=== PATIENT | female | born 1950 | race Caucasian/White ===

== ENCOUNTER 2018-04-15 16:12 | Emergency (ER) | payer MEDICARE, OTHER ==
[~2018-04-15] VITALS: Ht 154.9 cm; Wt 80.3 kg
[~2018-04-15 16:12] MED LIST: ASPIRIN81 MG PO; GLIPIZIDE10 MG PO; METFORMIN HCL850 MG PO; METOPROLOL TART50 MG PO; SIMVASTATIN20 M1 PO
[2018-04-15 16:20] VITALS: Ht 154.9 cm; Wt 80.3 kg
[2018-04-15 18:10] LABS: UA SPECIFIC GRAVITY >=1.030 (1.005-1.035); microscopic required? YES; urine erythrocyte NEGATIVE (NEGATIVE)
[2018-04-15 18:12] LABS: BASOPHIL % 0.6 % (0-2); PLATELET COUNT 253 x10^3mcL (130-400); RED CELL DISTRIBUTION WIDTH 12.2 % (11.5-14.5)
[2018-04-15 18:24] LABS: CALCIUM 10.1 mg/dL (8.5-10.1); CARBON DIOXIDE 28.3 mmol/L (21-32); CHLORIDE SERUM 104 mmol/L (98-107); CREATININE SERUM 0.8 mg/dL (0.6-1.0); GFR1 > 60 mL/min; GLUCOSE SERUM 226 mg/dL (74-106); POTASSIUM SERUM 3.9 mmol/L (3.5-5.1); SODIUM SERUM 142 mmol/L (136-145)
[2018-04-15 18:28] LABS: ALBUMIN 3.7 g/dL (3.4-5.0); ALKALINE PHOSPHATASE 59 U/L (46-116); ALT/SGPT 30 U/L (14-59); AST/SGOT 23 U/L (15-37); BILIRUBIN TOTAL 0.3 mg/dL (0.20-1.00); TOTAL PROTEIN, SERUM 7.3 g/dL (6.4-8.2)
[2018-04-15 23:02] VITALS: BP 115/67
== END 2018-04-15 23:02 | disposition home or self-care (01) ==
LOC: ED 16:12
PROVIDERS: Emergency Medicine
DX: N39.0 Urinary tract infection, site not specified (principal); E11.65 Type 2 diabetes mellitus with hyperglycemia; I10 Essential (primary) hypertension; E78.00 Pure hypercholesterolemia, unspecified
CPT/HCPCS: 36415

== ENCOUNTER 2020-03-13 16:08 | Observation (INO) | payer OTHER, MEDICAID, SELFPAY ==
[~2020-03-13] VITALS: Ht 165.1 cm; Wt 75.7 kg
[~2020-03-13 16:08] MED LIST changes: +ASPIRIN FOR CHI81 M1 PO; -ASPIRIN81 MG PO; +GLIPIZIDE XL10 M1 PO; -GLIPIZIDE10 MG PO
--- NOTE | 2020-03-13 17:23 | NUR ---
PT SPO2 NOTED 92% ON ROOM AIR. TX DR SING. ACOSTA EPT OFF OXYGEN AT THIS TIMRE UNTIL BLOOD GAS COMPLETED
--- NOTE | 2020-03-13 17:23 | NUR ---
DR MONTILLA AT THE BEDSIDE FOR MSE TO PT
--- NOTE | 2020-03-13 17:30 | NUR ---
PT ARRIVED FROM HOME, C/O INTERMITTENT HEADACHES, GENERALIZED ABDOMINAL PAIN DIARRHEA TODAY X 3 EPISODES, BODYACHES, FEVER AND CHILLS, X 3 DAYS TOTAL, PT STATES SHE ALSO CAME BECAUSE BLOOD SURGAR WAS LOW, 70 AT HOME, DENIES ANY OTHER COMPLAINTS AT THIS TIME, PT PLACED IN BED 12, GOWNED, AAOX4, NO ACUTE DISTRESS NOTED, PLACED ON FULL CM, SAFETY PRECAUTIONS IN PLACE, CALL LIGHT WITHIN EACH, PT WITH FACEMASK, ISOLATION PRECAUTIONS, WILL MONITOR,
--- NOTE | 2020-03-13 17:38 | NUR ---
LAB AT BEDSIDE WITH DRAW
--- NOTE | 2020-03-13 17:58 | NUR ---
CONTACTED PHARMACY FOR DEXTROSE 10% L, WILL BE BRINGING FLUIDS.
[2020-03-13 18:11] LABS: BASOPHIL % 0.3 % (0-2); PLATELET COUNT 204 x10^3mcL (130-400); RED CELL DISTRIBUTION WIDTH 11.9 % (11.5-14.5)
[2020-03-13 18:12] LABS: ALBUMIN 3.5 g/dL (3.4-5.0); ALKALINE PHOSPHATASE 33 U/L (46-116); ALT/SGPT 36 U/L (14-59); AST/SGOT 40 U/L (15-37); BILIRUBIN TOTAL 0.6 mg/dL (0.20-1.00); C REACTIVE PROTEIN 9.3 mg/dL (<=0.9); CALCIUM 9.3 mg/dL (8.5-10.1); CHLORIDE SERUM 99 mmol/L (98-107); CREATININE SERUM 1.4 mg/dL (0.6-1.0); GFR1 40 mL/min; GLUCOSE SERUM 93 mg/dL (74-106); LACTIC DEHYDROGENASE (LDH) 194 U/L (100-190); SODIUM SERUM 138 mmol/L (136-145)
[2020-03-13 18:15] LABS: TOTAL PROTEIN, SERUM 8.4 g/dL (6.4-8.2)
[2020-03-13 18:17] LABS: POTASSIUM SERUM 2.8 mmol/L (3.5-5.1)
--- NOTE | 2020-03-13 19:20 | NUR ---
REPORT GIVEN TO BRYAN BANSAL TO RESUME CARE OF PT
[2020-03-13] MEDS ORDERED: GLUCOTROL10 MG PO (19:45)
[2020-03-13] MEDS ORDERED: KAPSPARGO SPRIN50 MG PO (19:45)
[2020-03-13] MEDS ORDERED: BINOSTO70 MG PO (19:45)
[2020-03-13] MEDS ORDERED: METFORMIN HCL1000 M2 PO (19:45)
[2020-03-13] MEDS ORDERED: JANUVIA100 M1 PO (19:46)
[2020-03-13] MEDS ORDERED: ACID REDUCER20 MG PO (19:46)
--- NOTE | 2020-03-13 19:55 | NUR ---
PATIENT MEDICATED PER MD ORDER. PT VERBALIZED UNDERSTANDING OF MEDICATION PRIOR TO ADMINISTRATION. PT IS ON FULL HAND SPRING FORMER AND PULSE OX. PT IS AWAKE, AAOX4, RESP E/U, NAD NOTED. CALL LIGHT IS IN REACH. PATIENT GAVE PERMISSION TO RELAY INFORMATION AND UPDATES TO DAUGHTER ESTEFANY (CELL PHONE: [phone]).
--- NOTE | 2020-03-13 20:14 | NUR ---
PATIENT IS RESTING IN GURNEY IN POSITION OF COMFORT WITH CALL LIGHT IN REACH.
[2020-03-13 20:17] LABS: UA SPECIFIC GRAVITY >=1.030 (1.005-1.035); microscopic required? YES; urine erythrocyte NEGATIVE (NEGATIVE)
--- NOTE | 2020-03-13 21:14 | NUR ---
PATIENT IS AWAKE, AAOX4, RESP E/U, NAD NOTED. COMPLAINING OF NO PAIN AT THIS TIME. CALL LIGHT IN REACH.
--- NOTE | 2020-03-13 23:19 | NUR ---
REPORT CALLED TO ROLF RON TO ASSUME CARE OF PT.
--- NOTE | 2020-03-13 23:40 | NUR ---
FINGER STICK DONE ON ARRIVAL TO THE FLOOR WAS 127,PT ON D10,CONTINUE THE ORDER OF D10 AT 50CC/HR ORDER,WILL CONTINUE TO MONITOR.
--- NOTE | 2020-03-13 23:44 | NUR ---
PT TRANSFERRED TO [facility] FLOOR ACCOMPANIED BY NURSE AND EMT. PT AMBULATED W/STEADY GAIT TO BED FROM [facility]. NO S/S OF DISTRESS. RESP E/U. IV SITE PATENT, NO S/S OF INFILTRATION. NURSE AT BEDSIDE TO ASSUME CARE
--- NOTE | 2020-03-13 23:50 | NUR ---
RECEIVED PT VIA Superprotonic FROM E/D, ACCOMPANIED BY RN AND TRANSPORTER. PT A/A/O X 4, CALM, COOPERATIVE TO CARE. ON TELE # 4, NSR, HR 78, DENIES CHEST PAIN OR DISCOMFORT AT THIS TIME. CARMINA LUNGS DIM, CHEST RISING EVENLY, R/A, 96%, SOB ON EXERTION. ABD SOFT, ROUND, NON-TENDER, NORMOACTIVE BOWEL SOUNDS X 4 QUADS, LAST BM 03/12/2020, DIARRHEA. AMBULATORY, NO GAIT OR BALANCE IMPAIRMENT NOTED WHEN WALKING FROM GURNEY TO BED. IV SITE RAC 20G, CDI. ORIENTED PT TO ROOM, BED CONTROLS, CALL LIGHT SYSTEM. SIDE RAILS UP X 2, BED IN LOW POSITION. CONTACT/DROPLET PRECAUTION D/T R/O COVID-19. WILL ENDORSE TO ROLF RON.
[2020-03-14 00:42] VITALS: BP 113/51
--- NOTE | 2020-03-14 03:58 | NUR ---
PT HAD TEMP OF 102.4 ORALLY,PT WAS MEDICATED WITH TYLENOL 650 MG PO ORDER AND WILL CONTINUE TO MONITOR.
[2020-03-14 06:10] VITALS: BP 87/47
--- NOTE | 2020-03-14 06:24 | NUR ---
PT HAD A RESTING NIGHT NO CHANGE AT THIS TIME,WILL CONTINUE TO MONITOR.
[2020-03-14 06:53] LABS: BASOPHIL % 0.4 % (0-2); PLATELET COUNT 186 x10^3mcL (130-400); RED CELL DISTRIBUTION WIDTH 11.9 % (11.5-14.5)
[2020-03-14 07:04] LABS: CALCIUM 8.7 mg/dL (8.5-10.1); CARBON DIOXIDE 23.2 mmol/L (21-32); CHLORIDE SERUM 101 mmol/L (98-107); CREATININE SERUM 0.9 mg/dL (0.6-1.0); GFR1 > 60 mL/min; GLUCOSE SERUM 146 mg/dL (74-106); POTASSIUM SERUM 3.1 mmol/L (3.5-5.1); SODIUM SERUM 137 mmol/L (136-145)
--- NOTE | 2020-03-14 07:45 | NUR ---
RECEIEVED REPORT FROM NIGHTSHIFT RN. PATIENT A&OX4, INDONESIAN SPEAKING, IN NO APPARENT DISTRESS, ON ROOM AIR. NEEDS ADDRESSED, PLAN FOR DAY DISCUSSED. WILL CONTINUE TO MONITOR.
--- NOTE | 2020-03-14 08:40 | NUR ---
DR. LUNA MADE AWARE OF MG 1.0 AND K3.1 WITH PRN ORDER PRESENT FOR K+ COVERAGE ONLY.
[2020-03-14 09:01] VITALS: BP 111/59
[2020-03-14 13:00] VITALS: BP 101/50
--- NOTE | 2020-03-14 14:08 | NUR ---
DR LUNA RETURN PAGE MADE AWARE THAT PT TESTE +CVD AND THAT SHE HAD BEGAN TO DESATURATE AND WAS PLACED ON 2L/MIN VIA. NO NEW ORDERS AT THIS TIME.
--- NOTE | 2020-03-14 14:19 | NUR ---
PATIENT A&OX4, PLACED ON 2L NC FOR DESATS TO 88-90% ON ROOM AIR AT REST. 4MG MAGNESIUM REPLACED PER ORDER. LOW POTASSIUM 3.1 REPLACED WITH 40MEQ OF PO POTASSIUM. NSR ON THE MONITOR. WILL CONTINUE TO MONITOR.
--- NOTE | 2020-03-14 16:42 | NUR ---
PATIENT A&OX4, COVID RESULTED POSITIVE THIS AFTERNOON. PATIENT PLACED ON 2L NC FOR DESATS TO 88-89% AND NOW SATTING 92-94%. NSR ON THE MONITOR. UP AD EROS, VOIDING IN THE BATHROOM, D10 STOPPED AT 1800 PER ORDER. BLOOD SUGARS ELEVATED THIS SHIFT, INSULIN COVERAGE PROVIDED PER SLIDING SCALE ORDER. MAG AND POTASSIUM REPLACED (SEE NOTE). NO OTHER CONCERNS AT THIS TIME. CALL LIGHT AND BEDSIDE TABLE WITHIN REACH. NEEDS ATTENDED.
[2020-03-14 16:52] VITALS: Ht 165.1 cm; Wt 75.7 kg
[2020-03-14 16:54] VITALS: BP 109/49
--- NOTE | 2020-03-14 19:41 | NUR ---
PT RECIEVED AAO REG RESP NO SOB ON 2L N/C SAT 95%,HOB,ABDO IS SOFT WITH ACTIVE BOWEL SOUNDS,HL TO THE RT FOREARM WITH SITE PATENT AND INTACT,BED IN THE LOW POSITION AND LOCKED,KEPT CLEAN AND DRY TO TOUCH AND WILL CONTINUE TO MONITOR.
--- NOTE | 2020-03-14 21:09 | NUR ---
CALL TO DAUGHTER AND UPDATED HER STATUS OF THE MOTHER,WILL CONTINUE TO MONITOR.
--- NOTE | 2020-03-14 21:12 | NUR ---
PT IN R/A SAT 95%,WILL CONTINUE TO MONITOR.
[2020-03-14 21:34] VITALS: BP 120/63
--- NOTE | 2020-03-15 05:58 | NUR ---
PT HAD WITH C/O OF H/A ARCHING IN NAUTE AT THE SCALE OF 5/10,PT WAS NEDICATED WITH TYLENOL 650 MG PO ORDER,PT HAD A RESTFUL NIGHT NO CHANGE AT THIS TIME,WILL CONTINUE TO MONITOR.
--- NOTE | 2020-03-15 06:01 | NUR ---
PT IN R/A SAT 95%,WILL CONTINUE TO MONITOR.
[2020-03-15 06:07] VITALS: BP 98/54
[2020-03-15 06:50] LABS: BASOPHIL % 0.2 % (0-2); PLATELET COUNT 248 x10^3mcL (130-400); RED CELL DISTRIBUTION WIDTH 11.9 % (11.5-14.5)
[2020-03-15 06:53] LABS: CALCIUM 8.9 mg/dL (8.5-10.1); CARBON DIOXIDE 22.9 mmol/L (21-32); MAGNESIUM 1.8 mg/dL (1.8-2.4); POTASSIUM SERUM 3.6 mmol/L (3.5-5.1)
--- NOTE | 2020-03-15 07:40 | NUR ---
RECEIVED PT RESTING IN BED. NO ACUTE DISTRESS. AAOX4. BREATHING EVEN AND UNLABORED ON RA. IV WITH NO REDNESS OR SWELLING. DROPLET/CONTACT ISOLATION. BED IN LOW POSITION, CALL LIGHT WITHIN REACH. WILL CONTINUE TO MONITOR.
[2020-03-15 08:03] VITALS: BP 96/54
[2020-03-15 11:43] VITALS: BP 104/60
--- NOTE | 2020-03-15 12:33 | NUR ---
PT IN NO ACUTE DISTRESS. AAOX4. RESP EVEN AND UNLABORED ON RA. IV WITH NO REDNESS OR SWELLING. DROPLET/CONTACT ISOLATION. CALL LIGHT WITHIN REACH. WILL CONTINUE TO MONITOR.
[2020-03-15 12:38] VITALS: BP 104/60
--- NOTE | 2020-03-15 13:14 | NUR ---
PT AWAKE, ALERT, AND ORIENTED. VSS. AMBULATORY. EDUARDA DANGELO PROVIDED TRANSLATION FOR DISCHARGE. DISCHARGE EDUCATION PROVIDED, PT VERBALIZED UNDERSTANDING. INSTRUCTED PT TO FOLLOW UP WITH PCP AND TO FOLLOW ISOLATION GUIDELINES. IV DC'D WITH CATHETER INTACT. TELE REMOVED. PT GIVEN FACE MASK SUPPLIES. BELONGINGS WITH PT. PT WAITING FOR RIDE HOME.
== END 2020-03-15 13:20 | disposition home or self-care (01) ==
LOC: ED 16:08 → DU 20:52
PROVIDERS: Emergency Medicine; ADMIT Internal Medicine Pulmonary Disease; ATTEND Internal Medicine Pulmonary Disease
DX: U07.1 COVID-19 (principal); R50.9 Fever, unspecified; R06.02 Shortness of breath; B34.9 Viral infection, unspecified; R53.83 Other fatigue; E78.5 Hyperlipidemia, unspecified; E11.649 Type 2 diabetes mellitus with hypoglycemia without coma
CPT/HCPCS: 36600; 82962; 83880; 87804; G0378; J1100; J1644; J3475; J3480; J7050; Q0092; U0003-CS

== ENCOUNTER 2020-10-10 18:04 | Emergency (ER) | payer OTHER ==
[~2020-10-10] VITALS: Ht 152.4 cm; Wt 76.2 kg
[~2020-10-10 18:04] MED LIST changes: +ACID REDUCER20 MG PO; +BINOSTO70 MG PO; +GLUCOTROL10 MG PO; +JANUVIA100 M1 PO; +KAPSPARGO SPRIN50 MG PO; +METFORMIN HCL1000 M2 PO
[2020-10-10 18:15] VITALS: Ht 152.4 cm; Wt 76.2 kg
[2020-10-10 18:52] LABS: microscopic required? YES; urine erythrocyte NEGATIVE (NEGATIVE)
[2020-10-10] MEDS ORDERED: BACLOFEN5 MG PO (19:19)
[2020-10-10] MEDS ORDERED: MOT400 PO (19:19)
[2020-10-10 19:45] VITALS: BP 146/72
== END 2020-10-10 19:45 | disposition home or self-care (01) ==
LOC: ED 18:04
PROVIDERS: Emergency Medicine
DX: M62.830 Muscle spasm of back (principal); M54.6 Pain in thoracic spine; I10 Essential (primary) hypertension; E11.9 Type 2 diabetes mellitus without complications; E78.00 Pure hypercholesterolemia, unspecified; Z90.49 Acquired absence of other specified parts of digestive tract
CPT/HCPCS: J1885